=== PATIENT | male | born 1930 | race Caucasian/White ===

== ENCOUNTER 2019-08-05 16:29 | Emergency (ER) | payer MEDICARE, MEDICAID ==
[~2019-08-05] VITALS: Ht 170.2 cm; Wt 96.6 kg
[~2019-08-05 16:29] MED LIST: ATOR10TA68 PO; ECO81 PO; FINA5TAB11 PO; FURO-149 PO; GLIM4TAB PO; LINA5TAB2 PO; LOSA100T23 PO; METO50TA7 PO; PIOG15TA67 PO; TAMS0.4C96 PO
[2019-08-05 16:36] VITALS: BP_SYST 144
[2019-08-05 17:29] LABS: BASOPHILS % (AUTO) 0.7 % (0.0-2.0); EOSINOPHILS # (AUTO) 0.3 K/uL (0.0-0.4); EOSINOPHILS % (AUTO) 4.8 % (0.0-4.0); HEMATOCRIT 29.9 % (36-54); HEMOGLOBIN 9.6 g/dL (14.0-18.0); LYMPHOCYTES # (AUTO) 2.1 K/uL (1.0-5.5); LYMPHOCYTES % (AUTO) 34.2 % (20.5-51.5); MEAN CORPUSCULAR HEMOGLOBIN 30 pg (27-31); MEAN CORPUSCULAR HGB CONC 32 % (32-36); MEAN CORPUSCULAR VOLUME 92 fL (79.0-98.0); MONOCYTES # (AUTO) 0.6 K/uL (0.0-1.0); MONOCYTES % (AUTO) 9.9 % (1.7-9.3); NEUTROPHILS % (AUTO) 50.4 % (40.0-70.0); PLATELET COUNT (AUTO) 166 K/uL (130-430); RED BLOOD CELL COUNT(AUTO) 3.27 MIL/uL (4.2-6.2); RED CELL DISTRIBUTION WIDTH 13.8 % (9.0-15.0)
[2019-08-05 17:32] LABS: ANION GAP 11 (5-15); CALCIUM 7.6 mg/dL (8.4-11.0); CHLORIDE 103 mmol/L (98-107); CREATININE 2.15 mg/dL (0.55-1.30); GLUCOSE 218 mg/dL (70-99); POTASSIUM 4.8 mmol/L (3.5-5.1); SODIUM SERUM 138 mmol/L (136-145); UREA NITROGEN, BLOOD 47 mg/dL (8-21)
[2019-08-05 17:35] LABS: INR 1.1 (0.80-1.20); PROTHROMBIN TIME 10.8 SECS (9.5-12.5)
[2019-08-05 17:37] LABS: ALANINE AMINOTRANSFERASE 28 U/L (12-78); ASPARTATE AMINOTRANSFERASE 23 U/L (10-37); TOTAL BILIRUBIN 0.3 mg/dL (0.0-1.0)
[2019-08-05] MEDS ORDERED: GABA-529 PO (18:06)
[2019-08-05] MEDS ORDERED: ERGO500020 PO (18:06)
[2019-08-05 19:22] VITALS: BP_SYST 144
== END 2019-08-05 19:20 | disposition home or self-care (01) ==
LOC: SED 16:29
DX: N28.9 Disorder of kidney and ureter, unspecified (principal); R06.02 Shortness of breath; I10 Essential (primary) hypertension; E11.9 Type 2 diabetes mellitus without complications; Z86.73 Personal history of transient ischemic attack (TIA), and cerebral infarction without residual deficits; Z79.899 Other long term (current) drug therapy; Z79.82 Long term (current) use of aspirin
CPT/HCPCS: 36415; 71045; 80053; 83880; 84484; 85025; 85610-TC; 85730-TC; 99284